=== PATIENT | female | born 1965 ===

== ENCOUNTER 2017-09-11 13:33 | Inpatient (IN) | payer OTHER ==
[~2017-09-11] VITALS: Ht 157.5 cm; Wt 59.9 kg
[2017-09-11] MEDS ORDERED: SYNTHROID200 MCG PO (14:02)
[2017-09-20] MEDS ORDERED: PERCOCET 5-3251 EACH PO (13:42)
[2017-09-20] MEDS ORDERED: CLONAZEPAM1 MG PO (13:42)
[2017-09-20] MEDS ORDERED: COLACE100 MG PO (13:47)
[2017-09-20] MEDS ORDERED: NEURONTIN800 MG PO (13:47)
[2017-09-20] MEDS ORDERED: AMOX-CLAV 875-1 EACH PO (13:47)
== END 2017-09-21 14:57 | disposition home or self-care (01) | DRG 460 ==
LOC: O/R 09-20 05:44 → SURH 09-20 13:45 → PED 09-20 17:54
PROVIDERS: Orthopaedic Surgery Orthopaedic Surgery of the Spine
PROC: 0SG30AJ Fusion of Lumbosacral Joint with Interbody Fusion Device, Posterior Approach, Anterior Column, Open Approach (ICD-10-PCS; 2017-09-20)
PROC: 0ST40ZZ Resection of Lumbosacral Disc, Open Approach (ICD-10-PCS; 2017-09-20)
PROC: 07DS3ZZ Extraction of Vertebral Bone Marrow, Percutaneous Approach (ICD-10-PCS; 2017-09-20)
PROC: 00NY0ZZ Release Lumbar Spinal Cord, Open Approach (ICD-10-PCS; principal; 2017-09-20 15:15)
DX: M47.27 Other spondylosis with radiculopathy, lumbosacral region (principal); M51.17 Intervertebral disc disorders with radiculopathy, lumbosacral region; E03.8 Other specified hypothyroidism

== ENCOUNTER 2017-11-15 10:13 | Emergency (ER) | payer OTHER ==
[~2017-11-15] VITALS: Ht 157.5 cm; Wt 59.0 kg
[~2017-11-15 10:13] MED LIST: AMOX-CLAV 875-1 EACH PO; CLONAZEPAM1 MG PO; COLACE100 MG PO; NEURONTIN800 MG PO; PERCOCET 5-3251 EACH PO; SYNTHROID200 MCG PO
== END 2017-11-15 18:01 | disposition home or self-care (01) ==
LOC: ER 10:13
DX: R20.0 Anesthesia of skin (principal)